=== PATIENT | female | born 2005 | race Two or more races ===

== ENCOUNTER 2024-01-26 15:11 | Emergency (ER) | payer OTHER ==
[~2024-01-26] VITALS: Ht 157.5 cm; Wt 104.5 kg
[2024-01-26 15:52] VITALS: BP 152/98; PULSE 112; RESP 16; TEMP 97.8; O2SAT 97
[2024-01-26] MEDS: cefTRIAXone SOD 1,000 MG VL IM ONE (16:07)
[2024-01-26] MEDS ORDERED: CEPH500C PO (16:20)
[2024-01-26] MEDS ORDERED: LIDO2SOL26 MT (16:20)
== END 2024-01-26 16:37 | disposition home or self-care (01) ==
LOC: ER 15:11
DX: J03.90 Acute tonsillitis, unspecified (principal)
CPT/HCPCS: 96372; 99283; J0696